=== PATIENT | male | born 1970 | race Caucasian/White ===

== ENCOUNTER 2017-04-22 16:28 | Emergency (ER) | payer OTHER ==
[~2017-04-22] VITALS: Ht 182.9 cm; Wt 95.9 kg
[~2017-04-22 16:28] MED LIST: ATARAX PO; COUM10TA PO; DULC10SU2 PR; GABA-282 PO; LOVENOX PO; METF500T13 PO; TYLE325T5 PO; WARF-21 PO; WARF-23 PO; ZANA4TAB PO
[2017-04-22] MEDS ORDERED: LAMI300T PO (16:47)
[2017-04-22] MEDS ORDERED: VITA100072 PO (16:47)
[2017-04-22] MEDS ORDERED: COUM10TA PO (16:47)
[2017-04-22] MEDS ORDERED: QUET5TAB PO (16:47)
[2017-04-22] MEDS ORDERED: REME45TA PO (16:47)
[2017-04-22] MEDS ORDERED: ATOR1TAB21 PO (16:47)
[2017-04-22] MEDS ORDERED: ALL10TAB27 PO (16:47)
[2017-04-22] MEDS ORDERED: BUSP10TA PO (16:47)
[2017-04-22] MEDS ORDERED: BUPR150T5 PO (16:47)
[2017-04-22 18:01] LABS: INR 1.76
--- NOTE | 2017-04-22 18:08 | REP ---
LEFT LOWER EXTREMITY DOPPLER VENOUS ULTRASOUND: 04/22/2017 Clinical history: History of DVT. Currently on anticoagulation. Comparison: 08/11/2014. Technique: The deep venous system of the left lower extremity is evaluated with white scale imaging, compression ultrasound, color imaging and duplex Doppler interrogation. Examination from the groin through the popliteal fossa into the proximal calf. Findings: There is full compressibility from the common femoral vein in the inguinal region through the popliteal vein. Color imaging confirms patency throughout the course of the deep venous system. There is respiratory variation and augmented flow at all levels. Impression: 1. No Doppler venous ultrasound evidence of DVT in the left lower extremity. Signed by Ke Zhu MD 04/22/2017 06:01 P
[2017-04-22 18:39] LABS: ANION GAP 13 MEQ/L (8-16); BLOOD UREA NITROGEN 9 MG/DL (7-18); CALCIUM LEVEL 7.8 MG/DL (8.5-10.1); CARBON DIOXIDE LEVEL 21 MEQ/L (21-32); CHLORIDE LEVEL 108 MEQ/L (98-107); GLOMERULAR FILTRATION RATE > 60.0 (>60); GLUCOSE, FASTING 232 MG/DL (70-105); POTASSIUM SERUM 3.8 MEQ/L (3.5-5.1); SODIUM LEVEL 142 MEQ/L (136-145)
[2017-04-22 19:08] VITALS: BP 132/79
== END 2017-04-22 19:40 | disposition home or self-care (01) ==
LOC: M ED 16:28
DX: R79.1 Abnormal coagulation profile (principal); R22.42 Localized swelling, mass and lump, left lower limb; E11.9 Type 2 diabetes mellitus without complications; F43.10 Post-traumatic stress disorder, unspecified; Z86.718 Personal history of other venous thrombosis and embolism; Z86.73 Personal history of transient ischemic attack (TIA), and cerebral infarction without residual deficits; Z79.01 Long term (current) use of anticoagulants; Z88.5 Allergy status to narcotic agent; Z88.8 Allergy status to other drugs, medicaments and biological substances; Z91.041 Radiographic dye allergy status

== ENCOUNTER 2018-10-25 09:59 | Emergency (ER) | payer OTHER ==
[~2018-10-25] VITALS: Ht 188 cm; Wt 100.0 kg
[~2018-10-25 09:59] MED LIST changes: +ALL10TAB28 PO; +ATOR1TAB21 PO; +BUPR150T5 PO; +BUSP10TA PO; -GABA-282 PO; +GABA-843 PO; +LAMI300T PO; +QUET5TAB PO; +REME45TA PO; +VITA100072 PO
[2018-10-25] MEDS ORDERED: ONGL1TAB9 PO (10:14)
[2018-10-25] MEDS ORDERED: LAMO100T PO (10:14)
[2018-10-25] MEDS ORDERED: CRES10TA32 PO (10:14)
[2018-10-25] MEDS ORDERED: LIDOCAINE VISCOUS 2% SOLN 15ML UDC SSP ONE (10:45)
[2018-10-25] MEDS ORDERED: LIDOCAINE 1% SDV 5 ML VIAL DILUENT ONE (10:45)
[2018-10-25] MEDS ORDERED: cefTRIAXone SOD 1 GM VIAL (J0696) IM ONE (10:45)
[2018-10-25] MEDS ORDERED: AUGM875T28 PO (10:51)
[2018-10-25] MEDS ORDERED: LIDO1SOL7 PO (10:52)
[2018-10-25 11:12] VITALS: BP 117/73
== END 2018-10-25 11:20 | disposition home or self-care (01) ==
LOC: M ED 09:59
DX: K04.7 Periapical abscess without sinus (principal); R22.0 Localized swelling, mass and lump, head; E11.9 Type 2 diabetes mellitus without complications; E78.5 Hyperlipidemia, unspecified; F17.200 Nicotine dependence, unspecified, uncomplicated; Z86.73 Personal history of transient ischemic attack (TIA), and cerebral infarction without residual deficits; Z86.711 Personal history of pulmonary embolism; Z86.718 Personal history of other venous thrombosis and embolism; Z91.041 Radiographic dye allergy status; Z88.5 Allergy status to narcotic agent; Z88.8 Allergy status to other drugs, medicaments and biological substances; Z79.899 Other long term (current) drug therapy; Z79.01 Long term (current) use of anticoagulants; Z79.84 Long term (current) use of oral hypoglycemic drugs
CPT/HCPCS: 96372; 99283; J0696

== ENCOUNTER 2020-11-02 15:12 | Emergency (ER) | payer OTHER ==
[~2020-11-02] VITALS: Ht 185.4 cm; Wt 92.7 kg
[~2020-11-02 15:12] MED LIST changes: -ALL10TAB28 PO; +AUGM875T28 PO; +CETI-24 PO; +CRES10TA PO; +GABA-282 PO; -GABA-843 PO; +LAMO100T3 PO; +LIDO2SOL17 PO; +ONGL1TAB9 PO; +QUET50TA3 PO; -QUET5TAB PO; +VITA100018 PO; -VITA100072 PO
--- OUTSIDE RECORDS SUMMARY | 2020-11-02 15:19 | CCD ---
Author Author [facility] Organization [facility] Address Unknown Phone Unavailable Care Team Providers Care [employer] Name Role Phone MAITEOL, Javy PALM MD Unavailable Unavailable ANTECOL, Javy PALM MD Unavailable Unavailable ANTECOL, Javy PALM MD Unavailable Unavailable ANTECOL, Javy PALM MD Unavailable Unavailable ANTECOLJavy MD Unavailable Unavailable ANTECOL, Javy PALM MD Unavailable Unavailable ANTECOL, Javy PALM MD Unavailable Unavailable ANTECOL, Javy PALM MD Unavailable Unavailable ANTECOLJavy MD Unavailable Unavailable ANTECOLJavy MD Unavailable Unavailable ANTECOLJavy MD Unavailable Unavailable ANTECOLJavy MD Unavailable Unavailable ANTECOLJavy MD Unavailable Unavailable ANTECOLJavy MD Unavailable Unavailable ANTECOLJavy MD Unavailable Unavailable ANTECOLJavy MD Unavailable Unavailable ANTECOLJavy MD Unavailable Unavailable ANTECOLJavy MD Unavailable Unavailable ANTECOLJavy MD Unavailable Unavailable ANTECOLJavy MD Unavailable Unavailable ANTECOLJavy MD Unavailable Unavailable ANTECOLJavy MD Unavailable Unavailable ANTECOLJavy MD Unavailable Unavailable ANTECOLJavy MD Unavailable Unavailable ANTECOLJavy MD Unavailable Unavailable ANTECOLJavy MD Unavailable Unavailable ANTECOLJavy MD Unavailable Unavailable ANTECOLJavy MD Unavailable Unavailable ANTECOLJvay MD Unavailable Unavailable ANTECOLJavy MD Unavailable Unavailable ANTECOLJavy MD Unavailable Unavailable ANTECOLJavy MD Unavailable Unavailable ANTECOLJavy MD Unavailable Unavailable ANTECOL, Javy PALM MD Unavailable Unavailable ANTECOL, Javy PALM MD Unavailable Unavailable ANTECOL, Javy PALM MD Unavailable Unavailable ANTECOL, Javy PALM MD Unavailable Unavailable ANTECOL, Javy PALM MD Unavailable Unavailable ANTECOL, Javy PALM MD Unavailable Unavailable ANTECOL, Javy PALM MD Unavailable Unavailable ANTECOL, Javy PALM MD Unavailable Unavailable ANTECOL, Javy PALM MD Unavailable Unavailable ANTECOL, Javy PALM MD Unavailable Unavailable ANTECOL, Javy PALM MD Unavailable Unavailable ANTECOL, Javy PALM MD Unavailable Unavailable ANTECOL, Javy PALM MD Unavailable Unavailable ANTECOL, Javy PALM MD Unavailable Unavailable ANTECOL, Javy PALM MD Unavailable Unavailable ANTECOL, Javy PALM MD Unavailable Unavailable ANTECOL, Javy PALM MD Unavailable Unavailable ANTECOL, Javy PALM MD Unavailable Unavailable ANTECOL, Javy PALM MD Unavailable Unavailable ANTECOL, Javy PALM MD Unavailable Unavailable ANTECOL, Javy PALM MD Unavailable Unavailable ANTECOL, Javy PALM MD Unavailable Unavailable ANTECOL, Javy PALM MD Unavailable Unavailable [facility], [facility] Unavailable Unavailable Re-disclosure Warning The records that you are about to access may contain information from federally-assisted alcohol or drug abuse programs. If such information is present, then the following federally mandated warning applies: This information has been disclosed to you from records protected by federal confidentiality rules (42 CFR part 2). The federal rules prohibit you from making any further disclosure of this information unless further disclosure is expressly permitted by the written consent of the person to whom it pertains or as otherwise permitted by 42 CFR part 2. A general authorization for the release of medical or other information is NOT sufficient for this purpose. The Federal rules restrict any use of the information to criminally investigate or prosecute any alcohol or drug abuse patient.The records that you are about to access may contain highly sensitive health information, the redisclosure of which is protected by Article 27-F of the [facility] Public Health law. If you continue you may have access to information: Regarding HIV / AIDS; Provided by facilities licensed or operated by the [facility] Office of Mental Health; or Provided by the [facility] Office for People With Developmental Disabilities. If such information is present, then the following [facility] mandated warning applies: This information has been disclosed to you from confidential records which are protected by state law. State law prohibits you from making any further disclosure of this information without the specific written consent of the person to whom it pertains, or as otherwise permitted by law. Any unauthorized further disclosure in violation of state law may result in a fine or snf sentence or both. A general authorization for the release of medical or other information is NOT sufficient authorization for further disc losure. Encounters Encounter Providers Location Date Indications Data Source(s ) Outpatient Attender: NÉSTOR VICENTE MD Main Office 12/12/2019 12:30:00 PM EDT [facility] ([facility]) Outpatient Attender: JEAN [facility] 10/21/2019 09:19:05 AM [facility] Medications Medication Brand Name Start Date Product Form Dose Route Admi nistrative Instructions Pharmacy Instructions Status Indications Reaction Description Data Source(s) Clonazepam 0.5 MG Oral Tablet Clonazepam 12/11/2019 12:00:00 AM EDT ORAL active [facility] ([facility]) Guaifenesin 200 MG Oral Tablet Guaifenesin 12/11/2019 12:00:00 AM EDT ORAL active [facility] ([facility] Metformin hydrochloride 1000 MG Oral Tablet Metformin HCL 12/11/2019 12:00:00 AM EDT ORAL active [facility] ([facility]) buspirone hydrochloride 10 MG Oral Tablet Buspirone HCL 12/11/2019 12:00:00 AM EDT ORAL active [facility] ([facility]) lamotrigine 100 MG Oral Tablet Lamotrigine 12/11/2019 12:00:00 AM EDT ORAL active [facility] ([facility]) 12 HR Bupropion Hydrochloride 150 MG Extended Release Oral Tablet Bupropion HCL ER (SR) 12/11/2019 12:00:00 AM EDT ORAL active [facility] ([facility]) empagliflozin 25 MG Oral Tablet [Jardiance] Jardiance 12/11/2019 12:00:00 AM EDT ORAL active [facility] ([facility]) Rosuvastatin calcium 5 MG Oral Tablet Rosuvastatin Calcium 0 12/11/2019 12:00:00 AM EDT ORAL active [facility] ([facility]) saxagliptin 5 MG Oral Tablet [Onglyza] Onglyza 12/11/2019 12:00:00 AM EDT ORAL active [facility] ([facility]) quetiapine 100 MG Oral Tablet Quetiapine Fumarate 12/11/2019 12:00: 00 AM EDT ORAL active [facility] ([facility]) rivaroxaban 10 MG Oral Tablet [Xarelto] Xarelto 12/11/2019 12:00:0 0 AM EDT ORAL active [facility] ([facility]) Cholecalciferol 1000 UNT Oral Tablet Vitamin D (Cholecalcife rol) 12/11/2019 12:00:00 AM EDT ORAL active M [facility] ([facility]) Melatonin 3 MG Oral Capsule Melatonin 12/11/2019 12:00:00 AM EDT ORAL active [facility] ([facility]) Insurance Providers Payer name Policy type / Coverage type Policy ID Covered green party ID Covered green party's relationship to sigala Policy Sigala Plan Information [facility] [id number] SP [id number] 'S ADMINISTRATION [id number] SP [id number] [facility] P [id number] S [id number] Medicaid S [id number] S [id number] Managed Care [facility] P [id number] S [id number] Managed Care [facility] P [id number] S [id number] Self Pay P [id number] S [id number] Self Pay P UNAVAILABLE S UNAVAILA BLE [employer] CHOICE PROGRAM - O/P [id number] 18 [id number] [employer]ANS CHOICE PROGRAM - O/P 2015 18 2015 [facility] P [id number] S [id number] 'S ADMINISTRATION [id number] SP [id number] STATE INSURANCE FUND [id number] SP [id number] NON VA CARE [id number] SP [id number] [facility] P UNAVAILABLE S UNAVAILABLE [facility] [id number] SP [id number] STATE INSURANCE FUND P [id number] S [id number] STATE INSURANCE FUND [id number] SP [id number] STATE INSURANCE FUND [id number] SP [id number] OTHER WORKERS COMPENSATION [id number] SP [id number] SELF PAY UNAVAILABLE SP UNAVAILA BLE Problems, Conditions, and Diagnoses Code Display Name Description Problem Type Effective Dates Data Source(s) 556352196 Dietary management surveillance Dietary manageme nt surveillance Problem 12/12/2019 12:00:00 AM EDT [facility] ([facility] [id number] Counseling about tobacco use Counseling about tobacco use Problem 12/12/2019 12:00:00 AM EDT [facility] ([facility]) [id number] Tobacco user Tobacco user Problem 12/12/2019 12:00:00 A M EDT [facility] ([facility]) [id number] Overweight Overweight Problem 12/12/2019 12:00:00 AM ED T [facility] ([facility]) [id number] Pure hypercholesterolemia Pure hypercholesterolemia Pr oblem 12/12/2019 12:00:00 AM EDT [facility] ([facility]) [id number] Chest pain Chest pain Problem 12/12/2019 12:00:00 AM ED T [facility] ([facility]) Surgeries/Procedures Procedure Description Date Indications Data Source(s) CV STRS TST XERS&/OR RX CONT ECG PHYS SI&R 12/14/2019 12:00:00 AM EDT [facility] ([facility]) ECG ROUTINE ECG W/LEAST 12 LDS W/I&R 12/12/2019 12:00: 00 AM [facility] Results ID Date Data Source [id number] 09/19/2019 04:32:00 PM EST [facility] ([facility]) Name Value Range Interpretation Code Description Data Debbie rce(s) Supporting Document(s) Cholesterol 59 [facility] ([facility]) Triglycerides 76 [facility] ([facility]) HDL 37 [facility] ([facility]) Cholesterol in LDL [Mass/volume] in Serum or Plasma by calculation 6. 8 [facility] ([facility]) Chol/HDL Ratio Laboratory [facility] ID Date Data Source [id number] 09/19/2019 04:32:00 PM EST [facility] ([facility]) Name Value Range Interpretation Code Description Data Debbie rce(s) Supporting Document(s) Glucose 112 [facility] ([facility]) Creatinine 1.0 [facility] ([facility]) Blood Urea Nitrogen 8 [facility] ([facility]) Chloride 113 [facility] Sodium 142 [facility] ([facility]) Potassium 4.1 [facility] Carbon Dioxide 19 [facility] ([facility]) Calcium 8.7 [facility] Glomerular filtration rate/1.73 sq M.pre dicted [Volume Rate/Area] in Serum or Plasma by Creatinine-based formula (MDRD) Laboratory test result [facility] ([facility]) ID Date Data Source [id number] 09/19/2019 04:32:00 PM EST [facility] Name Value Range Interpretation Code Description Data Debbie rce(s) Supporting Document(s) Hemoglobin A1c/Hemoglobin.total in Blood 7.4 [facility] ([facility]) ID Date Data Source [id number] 09/19/2019 04:32:00 PM EST [facility]) Name Value Range Interpretation Code Description Data Debbie rce(s) Supporting Document(s) Red Blood Count 5.08 [facility] ([facility]) Platelets 173 [facility] White Blood Count 6.3 [facility] ([facility]) Hematocrit 46.5 [facility] ([facility]) Hemoglobin 14.7 [facility] ([facility]) Procedure Vital Signs ID Date Data Source UNK Name Value Range Interpretation Code Description Data Source(s) Diastolic blood pressure--sitting 62 mm[Hg] 62 mm[Hg] [facility] ([facility]) Omron adult cuff, Ra Systolic blood pressure--sitting 107 mm[Hg] 107 mm[Hg] [facility] ([facility]) Omron adult cuff, Ra Heart rate 73 /min 73 /min [facility] ([facility]) Body mass index (BMI) [Ratio] 28.6 kg/m2 28.6 k g/m2 [facility] ([facility]) Body height 72 [in_i] 72 [in_i] [facility] 6'0" Body weight 211.00 [lb_av] 211.00 [lb_av] [facility] T ([facility])
--- NOTE | 2020-11-02 16:07 | REP ---
INDICATION: CHEST PAIN. COMPARISON: Comparison chest x-ray January 12, 2014. TECHNIQUE: Portable upright AP chest radiograph. FINDINGS: The lungs are well inflated and free of infiltrate. Pleural angles are sharp. Heart size is normal. Pulmonary vasculature is not increased. IMPRESSION: No active disease. <Electronically signed by Delta Wilkins > 11/02/20 [id number]
--- OUTSIDE RECORDS SUMMARY | 2020-11-02 16:16 | CCD ---
Author Author [facility] Organization [facility] Address Unknown Phone Unavailable Care Team Providers Care Plumbing Service Technician Name Role Phone MAITEOL, Javy PALM MD [...] is protected by Article 27-F of the [facility] Public Health law. If you continue you may have access to information: Regarding HIV / AIDS; Provided by facilities licensed or operated by the [facility] Office of Mental Health; or Provided by the [facility] Office for People With Developmental Disabilities. If such information is present, then the following [facility] mandated warning applies: This information has been [...] law may result in a fine or [place] health [place] sentence or both. A general authorization for the release of medical or other information is NOT sufficient authorization for further disc losure. Encounters Encounter Providers Location Date Indications Data Source(s ) Outpatient Attender: NÉSTOR VICENTE MD Main Office 12/12/2019 12:30:00 PM EDT [facility] ([facility]) Outpatient Attender: JEAN [facility] 10/21/2019 09:19:05 AM [facility] Medications Medication Brand Name Start Date Product Form Dose Route Admi nistrative Instructions Pharmacy Instructions Status Indications Reaction Description Data Source(s) Clonazepam 0.5 MG Oral Tablet Clonazepam 12/11/2019 12:00:00 AM EDT ORAL active [facility] ([facility]) Guaifenesin 200 MG Oral Tablet Guaifenesin 12/11/2019 12:00:00 AM EDT ORAL active [facility] ([facility]) Metformin hydrochloride 1000 MG Oral Tablet Metformin HCL 12/11/2019 12:00:00 AM EDT ORAL active [facility] ([facility]) buspirone hydrochloride 10 MG Oral Tablet Buspirone HCL 12/11/2019 12:00:00 AM EDT ORAL active [facility] ([facility]) lamotrigine 100 MG Oral Tablet Lamotrigine 12/11/2019 12:00:00 AM EDT ORAL active [facility] ([facility]) 12 HR Bupropion Hydrochloride 150 MG Extended Release Oral Tablet Bupropion HCL ER (SR) 12/11/2019 12:00:00 AM EDT ORAL active [facility] ([facility]) empagliflozin 25 MG Oral Tablet [Jardiance] Jardiance 12/11/2019 12:00:00 AM EDT ORAL active [facility] ([facility]) Rosuvastatin calcium 5 MG Oral Tablet Rosuvastatin Calcium 0 12/11/2019 12:00:00 AM EDT ORAL active [facility] ([facility]) saxagliptin 5 MG Oral Tablet [Onglyza] Onglyza 12/11/2019 12:00:00 AM EDT ORAL active [facility] ([facility]) quetiapine 100 MG Oral Tablet Quetiapine Fumarate 12/11/2019 12:00: 00 AM EDT ORAL active [facility] ([facility]) rivaroxaban 10 MG Oral Tablet [Xarelto] Xarelto 12/11/2019 12:00:0 0 AM EDT ORAL active [facility] ([facility]) Cholecalciferol 1000 UNT Oral Tablet Vitamin D (Cholecalcife rol) 12/11/2019 12:00:00 AM EDT ORAL active M [facility] ([facility]) Melatonin 3 MG Oral Capsule Melatonin 12/11/2019 12:00:00 AM EDT ORAL active [facility] ([facility]) Insurance Providers Payer name Policy type / Coverage type Policy ID Covered democrat ID Covered democrat's relationship to sgiala Policy Sigala Plan Information 'S ADMINISTRATION [id number] SP [id number] [facility] COMMUN[facility] [id number] SP [id number] [facility] Care [facility] Community Plan P [id number] S [id number] Medicaid S [id number] S [id number] Managed Care [facility] P [id number] S [id number] Managed Care [facility] P [id number] S [id number] Self Pay P [id number] S [id number] Self Pay P UNAVAILABLE S UNAVAILA BLE [employer] CHOICE PROGRAM - O/P [id number] 18 [id number] [employer] CHOICE PROGRAM - O/P 2015 18 2015 [facility] [id number] S [id number] 'S ADMINISTRATION [id number] SP [id number] STATE INSURANCE FUND [id number] SP [id number] NON VA CARE [id number] SP [id number] [facility] P UNAVAILABLE S UNAVAILABLE [facility] [id number] SP [id number] STATE INSURANCE FUND P [id number] S [id number] STATE INSURANCE FUND [id number] SP [id number] STATE INSURANCE FUND [id number] SP [id number] OTHER WORKERS COMPENSATION [id number] SP [id number] SELF PAY UNAVAILABLE SP UNAVAILA BLE Problems, Conditions, and Diagnoses Code Display Name Description Problem Type Effective Dates Data Source(s) [id number] Dietary management surveillance Dietary manageme nt surveillance Problem 12/12/2019 12:00:00 AM EDT [facility] [id number] Counseling about tobacco use Counseling about tobacco use Problem 12/12/2019 12:00:00 AM EDT [facility] ([facility]) [id number] Tobacco user Tobacco user Problem 12/12/2019 12:00:00 A M EDT [facility] ([facility]) 937213885 Overweight Overweight Problem 12/12/2019 12:00:00 AM ED T [facility] ([facility]) [id number] Pure hypercholesterolemia Pure hypercholesterolemia Pr oblem 12/12/2019 12:00:00 AM EDT [facility] ([facility]) 48387733 Chest pain Chest pain Problem 12/12/2019 12:00:00 AM ED T [facility] ([facility]) Surgeries/Procedures Procedure Description Date Indications Data Source(s) CV STRS TST XERS&/OR RX CONT ECG PHYS SI&R 12/14/2019 12:00:00 AM EDT [facility] ([facility]) ECG ROUTINE ECG W/LEAST 12 LDS W/I&R 12/12/2019 12:00: 00 AM [facility] Results ID Date Data Source [id number] 09/19/2019 04:32:00 PM EST [facility] ([facility]) Name Value Range Interpretation Code Description Data Debbie rce(s) Supporting Document(s) Cholesterol 59 [facility] ([facility]) Triglycerides 76 [facility] ([facility] HDL 37 [facility] ([facility]) Cholesterol in LDL [Mass/volume] in Serum or Plasma by calculation 6. 8 [facility] ([facility]) Chol/HDL Ratio Laboratory test [facility] ID Date Data Source [id number] 09/19/2019 04:32:00 PM EST [facility] ([facility]) Name Value Range Interpretation Code Description Data Debbie rce(s) Supporting Document(s) Glucose 112 [facility] ([facility]) Creatinine 1.0 [facility] ([facility]) Blood Urea Nitrogen 8 [facility] ([facility] Chloride 113 [facility] Sodium 142 [facility] ([facility]) Potassium 4.1 [facility] Carbon Dioxide 19 [facility] ([facility]) Calcium 8.7 [facility] Glomerular filtration rate/1.73 sq M.pre dicted [Volume Rate/Area] in Serum or Plasma by Creatinine-based formula (MDRD) Laboratory test result [facility] ([facility]) ID Date Data Source [id number] 09/19/2019 04:32:00 PM EST [facility] Name Value Range Interpretation Code Description Data Debbie rce(s) Supporting Document(s) Hemoglobin A1c/Hemoglobin.total in Blood 7.4 [facility] ([facility]) ID Date Data Source [id number] 09/19/2019 04:32:00 PM EST [facility] Name Value Range Interpretation Code Description Data Debbie rce(s) Supporting Document(s) Red Blood Count 5.08 [facility] ([facility]) Platelets 173 [facility] White Blood Count 6.3 [facility] ([facility]) Hematocrit 46.5 [facility] ([facility]) Hemoglobin 14.7 [facility] ([facility]) Procedure Vital Signs ID Date Data Source UNK Name Value Range Interpretation Code Description Data Source(s) Diastolic blood pressure--sitting 62 mm[Hg] 62 mm[Hg] [facility] ([facility]) Omron adult cuff, Ra Systolic blood pressure--sitting 107 mm[Hg] 107 mm[Hg] [facility] ([facility]) Omron adult cuff, Ra Heart rate 73 /min 73 /min [facility] ([facility]) Body mass index (BMI) [Ratio] 28.6 kg/m2 28.6 k g/m2 [facility] ([facility]) Body height 72 [in_i] 72 [in_i] [facility] 6'0" Body weight 211.00 [lb_av] 211.00 [lb_av] [facility] T ([facility])
[2020-11-02 17:11] LABS: BASO % 0.3 % (0.0-1.0); EOS # 0.1 10^3/uL (0.0-0.5); EOS % 0.8 % (0.0-3.0); HEMATOCRIT 46.1 % (42.0-52.0); HEMOGLOBIN 15.4 g/dl (13.5-17.5); LYMPH # 2.6 10^3/uL (1.5-5.0); LYMPH % 33.6 % (24.0-44.0); MEAN CORPUSCULAR HEMOGLOBIN 29.1 pg (27.0-33.0); MEAN CORPUSCULAR HGB CONC 33.4 g/dl (32.0-36.5); MEAN CORPUSCULAR VOLUME 87.1 fl (80.0-96.0); MONO # 0.5 10^3/uL (0.0-0.8); MONO % 6.5 % (2.0-8.0); NEUTROPHILS # 4.5 10^3/uL (1.5-8.5); NEUTROPHILS % 58.4 % (36.0-66.0); PLATELET COUNT, AUTOMATED 191 10^3/uL (150-450); RED BLOOD COUNT 5.29 10^6/uL (4.30-6.10); WHITE BLOOD COUNT 7.7 10^3/uL (4.0-10.0)
[2020-11-02] MEDS ORDERED: ISOVUE-370 76% 100ML VIAL As Ordered ONE (17:11)
--- NOTE | 2020-11-02 17:25 | ECGEPIP ---
[facility] - ED Test Date: 2020-11-02 Pat Name: CHRISS CHARLES Department: Room: - Gender: Male [employer]er [employer] Un[employer]: YE : 1970 Requested By: Melody Peacock Order Number: [id number] Reading MD: Sander Hunt Measurements Intervals [place] Rate: 78 P: 263 WY: 132 QRS: 25 QRSD: 90 T: 14 QT: 368 QTc: 419 Interpretive Statements Unusual P axis and short [place], probable junctional tachycardia with undetermined rhythm irregularity Comparison tracing not on file Electronically Signed on 11-02-2020 17:24:48 EST by Sander Hunt
[2020-11-02 17:37] LABS: ALT/SGPT 51 U/L (12-78); BILIRUBIN,DIRECT < 0.1 MG/DL (0.0-0.2); BILIRUBIN,TOTAL 0.6 MG/DL (0.2-1.0); LIPASE 236 U/L (73-393); NT-PRO BNP 34 PG/ML (<125); TOTAL PROTEIN 7.3 GM/DL (6.4-8.2)
--- NOTE | 2020-11-02 18:24 | REPVR ---
PROCEDURE INFORMATION: Exam: CT Angiography Chest With Contrast Exam date and time: 11/02/2020 3:58 PM Age: 49 years old Clinical indication: Shortness of breath; Chest pain; Additional info: Abrupt onset sob/cp; HX of pe TECHNIQUE: Imaging protocol: Computed tomographic angiography of the chest with contrast. 3D rendering (Not supervised by radiologist): MIP and/or 3D reconstructed images were created by the technologist. Radiation optimization: All CT scans at this facility use at least one of these dose optimization techniques: automated exposure control; mA and/or kV adjustment per patient size (includes targeted exams where dose is matched to clinical indication); or iterative reconstruction. Contrast material: ISOVUE 370; Contrast volume: 75 ml; Contrast route: INTRAVENOUS (IV); COMPARISON: CT ANGIO CHEST 02/03/2014 1:06 PM FINDINGS: Pulmonary arteries: No filling defect in the pulmonary arteries to indicate pulmonary emboli. Aorta: Unremarkable. No aortic aneurysm. No aortic dissection. Lungs: Unremarkable. No consolidation. No masses. Pleural spaces: Unremarkable. No pneumothorax. No pleural effusion. Heart: Heart size is normal. No pericardial effusion Lymph nodes: Mildly enlarged portacaval and peripancreatic lymph nodes. Small lymph nodes along the gastrohepatic ligament. No mediastinal or hilar lymphadenopathy. Liver: There is diffuse fatty liver change. Gallbladder and bile ducts: Sludge or slightly radiopaque stones layering dependently in the gallbladder. Bones/joints: No acute osseous abnormality. No concerning osseous lesion. Multilevel degenerative disc disease in the lower thoracic spine. Rudimentary rib on the right at L1. Soft tissues: Unremarkable. Other findings: Report from prior CT angiography of the chest from 02/03/2014 is unavailable. IMPRESSION: 1. No evidence of pulmonary embolism. 2. Diffuse fatty liver change. 3. Mildly enlarged portacaval and peripancreatic lymph nodes. 4. Questionable gallbladder sludge or slightly radiopaque stones. Electronically signed by: Olivia Echevarria On 11/02/2020 18:25:22 PM
[2020-11-02 21:15] VITALS: BP 137/73
--- NOTE | 2020-11-03 07:58 | ECGEPIP ---
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
--- NOTE | 2020-11-04 07:25 | ED PDOC ---
Post-Departure Follow-Up radiology report faxed to nimesh Souza Sarah MD Nov 04, 2020 07:25
== END 2020-11-02 21:26 | disposition home or self-care (01) ==
LOC: M ED 15:12
DX: R07.9 Chest pain, unspecified (principal); E11.9 Type 2 diabetes mellitus without complications; K21.9 Gastro-esophageal reflux disease without esophagitis; F43.10 Post-traumatic stress disorder, unspecified; F17.200 Nicotine dependence, unspecified, uncomplicated; K76.0 Fatty (change of) liver, not elsewhere classified; Z88.6 Allergy status to analgesic agent; Z88.8 Allergy status to other drugs, medicaments and biological substances; Z79.899 Other long term (current) drug therapy; Z79.01 Long term (current) use of anticoagulants; Z79.84 Long term (current) use of oral hypoglycemic drugs
CPT/HCPCS: 36415; 71045; 71275; 80047; 80076; 83690; 83880; 84484; 85025; 93005; 93041; 94760; 99285; Q9967

== ENCOUNTER 2020-12-12 19:26 | Emergency (ER) | payer OTHER ==
[~2020-12-12] VITALS: Ht 185.4 cm; Wt 92.8 kg
[2020-12-12] MEDS ORDERED: XARE10TA PO (19:44)
[2020-12-12] MEDS ORDERED: ACETAMINOPHEN 500 MG TAB PO ONE (21:45)
[2020-12-12] MEDS ORDERED: LIDOCAINE 4% CREAM 5GM (LMX4) TOP ONE (21:45)
[2020-12-13] MEDS ORDERED: ANEC4CRE3 TOP (00:02)
[2020-12-13 00:29] VITALS: BP 120/71
--- NOTE | 2020-12-13 11:10 | REP ---
INDICATION: calf pain, pt tender, hx DVT COMPARISON: None. TECHNIQUE: Real time compression and duplex Doppler interrogation of the right lower extremity deep venous system is performed. FINDINGS: The right common femoral, superficial femoral and popliteal veins are fully compressible with transducer pressure and demonstrate normal spontaneous and phasic flow, without evidence of deep venous thrombosis. IMPRESSION: No evidence of deep venous thrombosis of the right lower extremity femoral popliteal venous system. A preliminary report was provided by [facility] at the time of the exam. <Electronically signed by Sourav Saleem > 12/13/20 [id number]
== END 2020-12-13 00:30 | disposition home or self-care (01) ==
LOC: M ED 19:26
DX: M79.661 Pain in right lower leg (principal); E11.9 Type 2 diabetes mellitus without complications; Z86.711 Personal history of pulmonary embolism; Z86.718 Personal history of other venous thrombosis and embolism; Z86.73 Personal history of transient ischemic attack (TIA), and cerebral infarction without residual deficits; Z79.01 Long term (current) use of anticoagulants; F17.210 Nicotine dependence, cigarettes, uncomplicated

== ENCOUNTER → 2021-09-19 | Outpatient (CLI) | payer OTHER ==
[~2021-09-19] MED LIST changes: +ANEC4CRE3 TOP; +CLON0.5T17 PO; +GUAI400T9 PO; +JARD1TAB3 PO; +MIRT1TAB17 PO; +NESI25TA PO; -QUET50TA3 PO; +QUET50TA4 PO; +XARE10TA PO
== END ==
LOC: M LABSMTC 09:12
PROVIDERS: ATTEND Anesthesiology
DX: Z01.818 Encounter for other preprocedural examination (principal); Z11.52 Encounter for screening for COVID-19

== ENCOUNTER 2021-09-23 08:43 | Day surgery (SDC) | payer OTHER ==
[~2021-09-23] VITALS: Ht 188 cm; Wt 91.6 kg
[~2021-09-23 08:43] MED LIST changes: +NS 1,000 ML IV ONE
[2021-09-23] MEDS ORDERED: LIDOCAINE 2% 100MG/5ML SDV (FOR ANES.) As Ordered ONE (09:42)
[2021-09-23] MEDS ORDERED: propofoL 200 MG/20 ML VIAL As Ordered ONE ×2 (09:42→09:57)
[2021-09-23 10:39] VITALS: BP 110/62
== END 2021-09-23 10:42 | disposition home or self-care (01) ==
LOC: M OPP 08:43
PROVIDERS: ATTEND Internal Medicine Gastroenterology
DX: Z12.11 Encounter for screening for malignant neoplasm of colon (principal); K64.0 First degree hemorrhoids; Z79.84 Long term (current) use of oral hypoglycemic drugs; Z79.891 Long term (current) use of opiate analgesic; Z79.899 Other long term (current) drug therapy; Z88.5 Allergy status to narcotic agent; Z88.8 Allergy status to other drugs, medicaments and biological substances; F17.210 Nicotine dependence, cigarettes, uncomplicated

== ENCOUNTER → 2025-01-13 | Outpatient (CLI) | payer OTHER ==
[~2025-01-13] MED LIST changes: +ATOR1TAB19 PO; +B-12100011 PO; +BUPR-71 PO; -BUPR150T5 PO; +GABA-1172 PO; -GABA-282 PO; +LAMI1TAB7 PO; +LANTINJ4 SC; +LIDO15SO8 PO; -LIDO2SOL17 PO; +METF-1157 PO; +METH-1164 PO; +MUCI600T31 PO; -NS 1,000 ML IV ONE; +PIOG30TA PO; +TRAM50TA2 PO; +VITA100093 PO
== END ==
LOC: M RAD 15:36
PROVIDERS: ATTEND Internal Medicine
DX: M54.12 Radiculopathy, cervical region (principal)